=== PATIENT | male | born 1975 | race African-American/Black ===

== ENCOUNTER 2021-06-25 12:51 | Emergency (ER) | payer OTHER ==
[~2021-06-25] VITALS: Ht 175.3 cm; Wt 85.7 kg
[~2021-06-25 12:51] MED LIST: ANTIVERT25 MG PO
[2021-06-25 13:29] LABS: ABSOLUTE NEUTROPHILS 3.4 thou/uL (1.4-8.2); BASOPHILS 0.8 % (0.0-2.0); EOSINOPHILS 0.9 % (0.0-3.0); HEMATOCRIT 43.2 % (42.0-52.0); HEMOGLOBIN 14.5 gm/dL (14.0-18.0); LYMPHOCYTES 41.7 % (24.0-44.0); MCH 29.7 pg (26.0-34.0); MCHC 33.5 g/dL (28.0-37.0); MCV 88.6 fL (80.0-100.0); MONOCYTES 6.9 % (1.0-8.0); PLATELET COUNT 273 thou/uL (150-400); POLYS 49.7 % (36.0-66.0); RBC 4.88 mil/uL (4.50-6.00); WBC 6.9 thou/uL (4.0-11.0)
[2021-06-25 13:40] LABS: ANION GAP 12 mmol/L (7-16); BUN 13 mg/dL (7-18); CALCIUM 9.6 mg/dL (8.5-10.1); CHLORIDE 106 mmol/L (98-107); CO2 22 mmol/L (21-32); CREATININE 1.2 mg/dL (0.7-1.3); GLUCOSE 124 mg/dL (74-106); SODIUM 140 mmol/L (136-145)
[2021-06-25 13:41] LABS: POTASSIUM 4.4 mmol/L (3.5-5.1)
[2021-06-25 13:55] LABS: ALBUMIN 4.1 g/dL (3.4-5.0); LIPASE 719 U/L (73-393); SGOT 35 U/L (15-37); SGPT 32 U/L (16-63); TOTAL PROTEIN 8.3 g/dL (6.4-8.2)
[2021-06-25 15:13] VITALS: BP 115/80
--- NOTE | 2021-06-26 08:17 | EKG ---
[place] [address] [employer] [facility] [place] [place] [address] ELECTROCARDIOGRAM REPORT Name: NADIA PARR Room #: DEP [facility]#: [id number] Admission: 06/25/21 Attend Phys: Discharge: 06/25/21 Date of : 79 Report #: [id number] [facility] ED Test Date: 2021-06-25 Test Time: 12:56:32 Pat Name: NADIA PARR Department: Room: Gender: M Frit Coater: KEVIN : 1975 Requested By: Mayda Almonte Order Number: [id number] MD: Gary Bradshaw Measurements Intervals [place] Rate: 106 P: 69 CT: 123 QRS: 48 QRSD: 86 T: 13 QT: 319 QTc: 424 Interpretive Statements Sinus tachycardia Abnormal R-wave progression, early transition Baseline wander in lead(s) III Compared to ECG 01/05/2014 10:21:19 Sinus bradycardia no longer present ST (T wave) deviation no longer present Electronically Signed On 06-26-2021 8:17:18 CDT by Gary Bradshaw [email or web address] <ELECTRONICALLY SIGNED> By: Gary Bradshaw MD, [facility] 06/26/21 0817 [id number] Gary Bradshaw MD, [facility] /EPI
== END 2021-06-25 15:14 | disposition home or self-care (01) ==
LOC: ER 12:51
PROVIDERS: Physician Assistant
DX: K85.80 Other acute pancreatitis without necrosis or infection (principal); R07.9 Chest pain, unspecified